=== PATIENT | male | born 1970 | race Caucasian/White ===

== ENCOUNTER → 2017-11-29 | Outpatient (CLI) | payer OTHER ==
[~2017-11-29] MED LIST: AMLO10 PO; ATOR80 PO; Aspir 8181 MG PO; CLOP75 PO; LISI20 PO
[2017-11-29 15:10] LABS: Adenovirus F 40/41 Not Detected (NOT DETECT); Astrovirus Not Detected (NOT DETECT); Campylobacter Sp Not Detected (NOT DETECT); Cryptosporidium Not Detected (NOT DETECT); Cyclospora Cayetanensis Not Detected (NOT DETECT); E. Coli O157 Not Detected (NOT DETECT); Entamoeba Histolytica Not Detected (NOT DETECT); Enteroaggregative E. coli-EAEC Not Detected (NOT DETECT); Enteropathogenic E. coli-EPEC Not Detected (NOT DETECT); Enterotoxigenic E. coli-ETEC Not Detected (NOT DETECT); Giardia Lamblia Not Detected (NOT DETECT); Norovirus GI/GII Not Detected (NOT DETECT); Plesiomonas Shigelloides Not Detected (NOT DETECT); Rotavirus A Not Detected (NOT DETECT); Salmonella Sp Not Detected (NOT DETECT); Sapovirus Not Detected (NOT DETECT); Shiga Toxin-prod E. coli-STEC Not Detected (NOT DETECT); Shigella/Enteroin E. coli-EIEC Not Detected (NOT DETECT); Vibrio Cholerae Not Detected (NOT DETECT); Vibrio Sp Not Detected (NOT DETECT); Yersinia Enterocolitica Not Detected (NOT DETECT)
== END | disposition home or self-care (01) ==
LOC: LAB EV 11:00 → LAB FUT 11-09 14:20
PROVIDERS: Student in an Organized Health Care Education/Training Program
DX: K62.5 Hemorrhage of anus and rectum (principal); R19.7 Diarrhea, unspecified
CPT/HCPCS: 87507

== ENCOUNTER 2017-12-07 11:50 | Day surgery (SDC) | payer OTHER ==
[~2017-12-07] VITALS: Ht 165.1 cm; Wt 99.8 kg
== END 2017-12-07 15:10 | disposition home or self-care (01) ==
LOC: ORSCSDS 11:50
PROVIDERS: Student in an Organized Health Care Education/Training Program
PROC: 0DBL8ZX Excision of Transverse Colon, Via Natural or Artificial Opening Endoscopic, Diagnostic (ICD-10-PCS; principal; 2017-12-07 13:15)
PROC: 0DBN8ZX Excision of Sigmoid Colon, Via Natural or Artificial Opening Endoscopic, Diagnostic (ICD-10-PCS; principal; 2017-12-07 13:15)
DX: K62.5 Hemorrhage of anus and rectum (principal); K63.5 Polyp of colon; D12.3 Benign neoplasm of transverse colon; K57.30 Diverticulosis of large intestine without perforation or abscess without bleeding; K64.8 Other hemorrhoids; K64.4 Residual hemorrhoidal skin tags; I10 Essential (primary) hypertension; Z80.0 Family history of malignant neoplasm of digestive organs; R19.7 Diarrhea, unspecified; J44.9 Chronic obstructive pulmonary disease, unspecified; Z87.891 Personal history of nicotine dependence; Z79.82 Long term (current) use of aspirin; Z79.84 Long term (current) use of oral hypoglycemic drugs; Z79.899 Other long term (current) drug therapy
CPT/HCPCS: J7120

== ENCOUNTER 2019-01-19 21:19 | Emergency (ER) | payer OTHER ==
[~2019-01-19] VITALS: Ht 165.1 cm; Wt 113.4 kg
[~2019-01-19 21:19] MED LIST changes: -CLOP75 PO; +Synthroid137 MCG PO
[2019-01-19 22:00] LABS: BASOPHILS ABSOLUTE AUTO 0.03 K/mm3 (0.00-0.23); BASOPHILS PERCENT AUTO 0 % (0-2); EOSINOPHILS ABSOLUTE AUTO 0.07 K/mm3 (0.00-0.68); EOSINOPHILS PERCENT AUTO 1 % (0-6); Hematocrit 45.3 % (37.0-53.0); IMMATURE GRAN ABSOLUTE AUTO 0.03 K/mm3 (0.00-0.10); IMMATURE GRAN PERCENT AUTO 0 % (0-1); LYMPHOCYTES ABSOLUTE AUTO 1.37 K/mm3 (0.84-5.20); LYMPHOCYTES PERCENT AUTO 14 % (21-46); MONOCYTES ABSOLUTE AUTO 1.01 K/mm3 (0.16-1.47); MONOCYTES PERCENT AUTO 10 % (4-13); Mean Corpuscular HGB Conc 33.1 g/dL (31.5-36.5); Mean Corpuscular Volume 91 fL (80-100); Mean Platelet Volume 9.6 fL (9.1-12.4); NEUTROPHILS ABSOLUTE AUTO 7.22 K/mm3 (1.96-9.15); NEUTROPHILS PERCENT AUTO 74 % (41-73); Platelet Count 342 K/mm3 (150-400); RDW Coefficient Variation 12.3 % (11.7-14.2); RDW Standard Deviation 40.8 fL (35.1-46.3); White Blood Cell Count 9.73 K/mm3 (4.00-11.30)
[2019-01-19 22:20] LABS: Alanine Aminotransfer (ALT/SGP 36 U/L (12-78); Albumin, Blood 3.7 g/dL (3.4-5.0); Albumin/Globulin Ratio 0.9 (0.8-1.8); Alk Phos 102 U/L (50-136); Anion Gap 9 mmol/L (6-16); Aspartate Aminotrans (AST/SGOT 31 U/L (12-37); Bilirubin, Total 0.5 mg/dL (0.1-1.0); Blood Urea Nitrogen 12 mg/dL (8-24); Bun/Creatinine Ratio 16.9 (12.0-20.0); CO2, Blood 26 mmol/L (21-32); Calcium, Blood 8.8 mg/dL (8.5-10.1); Chloride, Blood 102 mmol/L (98-108); Creatinine, Blood 0.71 mg/dL (0.60-1.20); Globulin, Blood 4.3 g/dL (2.2-4.0); Glomerular Filtration Rate >60 (60-); Glucose, Blood 115 mg/dL (70-99); Potassium, Blood 3.8 mmol/L (3.5-5.5); Sodium, Blood 137 mmol/L (136-145)
[2019-01-20] MEDS ORDERED: Roxicodone5 MG PO (01:43)
[2019-01-20] MEDS ORDERED: ONDA4ODT MM (01:43)
[2019-01-21] MEDS ORDERED: CLOP75 PO (19:17)
== END 2019-01-20 02:27 | disposition home or self-care (01) ==
LOC: ER 21:19
PROVIDERS: Emergency Medicine
DX: K80.70 Calculus of gallbladder and bile duct without cholecystitis without obstruction (principal); Z88.0 Allergy status to penicillin; Z79.82 Long term (current) use of aspirin; Z79.899 Other long term (current) drug therapy; I10 Essential (primary) hypertension; Z86.73 Personal history of transient ischemic attack (TIA), and cerebral infarction without residual deficits; E03.9 Hypothyroidism, unspecified; Z87.891 Personal history of nicotine dependence
CPT/HCPCS: 36415; 76705; 80053; 83690; 85025; 96361; 96374; 96375; 99284-25; A9270; A9270-GY; J1170; J2405; J7120

== ENCOUNTER 2019-01-21 16:21 | Observation (INO) | payer OTHER ==
[~2019-01-21] VITALS: Ht 165.1 cm; Wt 113.4 kg
[~2019-01-21 16:21] MED LIST changes: +ONDA4ODT MM; +Roxicodone5 MG PO
[2019-01-21 17:58] LABS: BASOPHILS ABSOLUTE AUTO 0.02 K/mm3 (0.00-0.23); BASOPHILS PERCENT AUTO 0 % (0-2); EOSINOPHILS ABSOLUTE AUTO 0.02 K/mm3 (0.00-0.68); EOSINOPHILS PERCENT AUTO 0 % (0-6); Hematocrit 44.9 % (37.0-53.0); IMMATURE GRAN ABSOLUTE AUTO 0.04 K/mm3 (0.00-0.10); IMMATURE GRAN PERCENT AUTO 0 % (0-1); LYMPHOCYTES ABSOLUTE AUTO 0.78 K/mm3 (0.84-5.20); LYMPHOCYTES PERCENT AUTO 9 % (21-46); MONOCYTES ABSOLUTE AUTO 0.59 K/mm3 (0.16-1.47); MONOCYTES PERCENT AUTO 7 % (4-13); Mean Corpuscular HGB 29.4 pg (26.0-34.0); Mean Corpuscular HGB Conc 33.4 g/dL (31.5-36.5); Mean Platelet Volume 9.6 fL (9.1-12.4); NEUTROPHILS ABSOLUTE AUTO 7.69 K/mm3 (1.96-9.15); NEUTROPHILS PERCENT AUTO 84 % (41-73); Platelet Count 351 K/mm3 (150-400); RDW Coefficient Variation 12.1 % (11.7-14.2); RDW Standard Deviation 39.4 fL (35.1-46.3); White Blood Cell Count 9.14 K/mm3 (4.00-11.30)
[2019-01-21 17:59] LABS: Mean Corpuscular Volume 88 fL (80-100)
[2019-01-21 18:15] LABS: Alanine Aminotransfer (ALT/SGP 664 U/L (12-78); Albumin, Blood 3.9 g/dL (3.4-5.0); Alk Phos 372 U/L (50-136); Anion Gap 8 mmol/L (6-16); Aspartate Aminotrans (AST/SGOT 516 U/L (12-37); Bilirubin, Total 3.6 mg/dL (0.1-1.0); Blood Urea Nitrogen 7 mg/dL (8-24); Bun/Creatinine Ratio 10.8 (12.0-20.0); CO2, Blood 25 mmol/L (21-32); Calcium, Blood 9.4 mg/dL (8.5-10.1); Chloride, Blood 99 mmol/L (98-108); Creatinine, Blood 0.65 mg/dL (0.60-1.20); Globulin, Blood 4.1 g/dL (2.2-4.0); Glomerular Filtration Rate >60 (60-); Glucose, Blood 162 mg/dL (70-99); Potassium, Blood 3.1 mmol/L (3.5-5.5); Sodium, Blood 132 mmol/L (136-145)
[2019-01-21] MEDS ORDERED: CLOP75 PO (19:17)
[2019-01-21 19:56] LABS: Source, Urine Clean Catch
[2019-01-21 20:00] LABS: Blood, Urine Neg (Neg); Glucose Qualitative, Urine Neg (Neg); Ketones, Urine 3+ (Neg); Leukocyte Esterase, Urine 1+ (Neg); Nitrite, Urine Neg (Neg); Protein, Urine 2+ (Neg); Specific Gravity, Urine 1.015 (1.003-1.022); Urobilinogen, Urine 4+ (Normal); pH, Urine 6.5 (5.0-8.0)
[2019-01-21 20:09] LABS: Bilirubin, Urine 3+ (Neg)
[2019-01-21 20:10] LABS: Appearance, Urine Clear (Clear); Color, Urine Orange (P-Yellow)
[2019-01-21 20:11] LABS: Bacteria Mod /hpf; Mucus Mod (0-Heavy); Red Blood Cells, Urine 0-2 /hpf (0-2); Squamous Epithelial Cells Few /hpf (Few)
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
[2019-01-22 06:20] LABS: Alanine Aminotransfer (ALT/SGP 509 U/L (12-78); Albumin, Blood 3.2 g/dL (3.4-5.0); Albumin/Globulin Ratio 0.8 (0.8-1.8); Alk Phos 354 U/L (50-136); Anion Gap 5 mmol/L (6-16); Aspartate Aminotrans (AST/SGOT 311 U/L (12-37); Bilirubin, Total 4.1 mg/dL (0.1-1.0); Blood Urea Nitrogen 8 mg/dL (8-24); Bun/Creatinine Ratio 9.5 (12.0-20.0); CO2, Blood 30 mmol/L (21-32); Calcium, Blood 8.9 mg/dL (8.5-10.1); Chloride, Blood 101 mmol/L (98-108); Creatinine, Blood 0.84 mg/dL (0.60-1.20); Globulin, Blood 3.9 g/dL (2.2-4.0); Glomerular Filtration Rate >60 (60-); Glucose, Blood 108 mg/dL (70-99); Sodium, Blood 136 mmol/L (136-145); Total Protein, Blood 7.1 g/dL (6.4-8.2)
--- NOTE | 2019-01-22 17:17 | NUR ---
SUMMARY PT HAS A ROOM AT [facility], PLAN FOR COBRA TRANSFER IVETTE, PT AWARE, REPORTS PAIN IS TOLERABLE WITH 0.5MG IV DILAUDID, PT MEDICATED X2 FOR PAIN TODAY, AMBULATES IN ROOM WITHOUT DIFFICULTY, DENIED ANY NAUSEA T/O SHIFT, CURRENTLY HAVING FULL LIQUIDS AND TOLERATING WELL, FLAGYL CURRENTLY INFUSING, PT WOULD LIKE TO TAKE A SHOWER AFTER IV ABX FINISHED AND BEFORE TRANSPORT, ATTEMPTED TO CALL JOVANI BROOKS AT [facility] TO CALL FOR REPORT BUT WAS UNAVAILABLE AT THIS TIME.
== END 2019-01-22 18:52 | disposition short-term general hospital (02) ==
LOC: ER 16:21 → SURS 16:22
PROVIDERS: Physician Assistant; ADMIT Surgery
DX: K80.42 Calculus of bile duct with acute cholecystitis without obstruction (principal); I10 Essential (primary) hypertension; G47.30 Sleep apnea, unspecified; E03.9 Hypothyroidism, unspecified; Z86.73 Personal history of transient ischemic attack (TIA), and cerebral infarction without residual deficits; Z99.89 Dependence on other enabling machines and devices; Z87.891 Personal history of nicotine dependence; Z79.899 Other long term (current) drug therapy; Z79.82 Long term (current) use of aspirin
CPT/HCPCS: 36415; 74181; 76705; 80053; 81001; 83690; 85025; 87086; 90686; 93005; 93010; 96365; 96366; 96367; 96375; 96376; 99285-25; G0008; G0378; J1170; J1885; J1956; J2550; J7120

== ENCOUNTER 2019-02-02 15:06 | Inpatient (IN) | payer OTHER ==
[~2019-02-02] VITALS: Ht 165.1 cm; Wt 115.3 kg
[~2019-02-02 15:06] MED LIST changes: +CLOP75 PO
[2019-02-02 15:30] LABS: Calcium, Ionized (POC) 1.14 mmol/L (1.10-1.46); Chloride (POC) 103 mmol/L (98-108); Creatinine (POC) 0.9 mg/dL (0.8-1.3); Glucose (ISTAT POC) 130 mg/dL (70-99); Hemoglobin (POC) 10.5 g/dL (13.5-17.5); Potassium (POC) 4.3 mmol/L (3.5-5.5); Sodium (POC) 134 mmol/L (135-148); Total CO2 (POC) 21 mmol/L (21-32)
[2019-02-02 15:35] LABS: BASOPHILS ABSOLUTE AUTO 0.08 K/mm3 (0.00-0.23); BASOPHILS PERCENT AUTO 1 % (0-2); EOSINOPHILS ABSOLUTE AUTO 0.04 K/mm3 (0.00-0.68); EOSINOPHILS PERCENT AUTO 0 % (0-6); Hematocrit 32.6 % (37.0-53.0); Hemoglobin 10.4 g/dL (13.5-17.5); IMMATURE GRAN ABSOLUTE AUTO 0.19 K/mm3 (0.00-0.10); IMMATURE GRAN PERCENT AUTO 1 % (0-1); LYMPHOCYTES ABSOLUTE AUTO 2.33 K/mm3 (0.84-5.20); LYMPHOCYTES PERCENT AUTO 16 % (21-46); MONOCYTES ABSOLUTE AUTO 1.16 K/mm3 (0.16-1.47); MONOCYTES PERCENT AUTO 8 % (4-13); Mean Corpuscular HGB 29.9 pg (26.0-34.0); Mean Corpuscular HGB Conc 31.9 g/dL (31.5-36.5); NEUTROPHILS ABSOLUTE AUTO 10.74 K/mm3 (1.96-9.15); NEUTROPHILS PERCENT AUTO 74 % (41-73); Platelet Count 534 K/mm3 (150-400); RDW Coefficient Variation 12.4 % (11.7-14.2); Red Blood Cell Count 3.48 M/mm3 (4.30-5.90); White Blood Cell Count 14.54 K/mm3 (4.00-11.30)
[2019-02-02 15:39] LABS: Mean Corpuscular Volume 94 fL (80-100)
[2019-02-02 15:50] LABS: International Normalized Ratio 0.96; Prothrombin Time Results 10.2 Sec (9.7-11.5)
[2019-02-02 15:58] LABS: Alanine Aminotransfer (ALT/SGP 63 U/L (12-78); Albumin, Blood 3.3 g/dL (3.4-5.0); Albumin/Globulin Ratio 0.9 (0.8-1.8); Alk Phos 118 U/L (50-136); Anion Gap 9 mmol/L (6-16); Aspartate Aminotrans (AST/SGOT 18 U/L (12-37); Bilirubin, Total 0.5 mg/dL (0.1-1.0); Blood Urea Nitrogen 39 mg/dL (8-24); Bun/Creatinine Ratio 44.4 (12.0-20.0); CO2, Blood 20 mmol/L (21-32); Calcium, Blood 8.6 mg/dL (8.5-10.1); Chloride, Blood 105 mmol/L (98-108); Creatinine, Blood 0.88 mg/dL (0.60-1.20); Globulin, Blood 3.8 g/dL (2.2-4.0); Glomerular Filtration Rate >60 (60-); Glucose, Blood 126 mg/dL (70-99); Potassium, Blood 4.2 mmol/L (3.5-5.5); Sodium, Blood 134 mmol/L (136-145); Total Protein, Blood 7.1 g/dL (6.4-8.2)
--- NOTE | 2019-02-02 19:06 | NUR ---
PT ADMITTED TO ROOM [id number] VIA GURNEY FROM ED APPROX 1745. FAMILY AT BEDSIDE. PT ABLE TO ANSWER ALL QUESTIONS APPROPRIATELY. DENIES FEELING PAIN OR NAUSEA. NO EPISODES SINCE ARRIVAL OF BLANK STARES WITH NO VERBAL RESPONSE. SPOKE WITH DR. CORTES. NEW ORDERS. GIVEN CLEAR LIQUID DINNER. NO STOOL SINCE ARRIVAL TO FLOOR
[2019-02-02 21:25] LABS: Hematocrit 26.5 % (37.0-53.0); Hemoglobin 8.6 g/dL (13.5-17.5)
[2019-02-03 03:31] LABS: BASOPHILS ABSOLUTE AUTO 0.04 K/mm3 (0.00-0.23); BASOPHILS PERCENT AUTO 0 % (0-2); EOSINOPHILS ABSOLUTE AUTO 0.06 K/mm3 (0.00-0.68); EOSINOPHILS PERCENT AUTO 1 % (0-6); Hematocrit 22.4 % (37.0-53.0); Hematocrit 22.6 % (37.0-53.0); Hemoglobin 7.1 g/dL (13.5-17.5); Hemoglobin 7.2 g/dL (13.5-17.5); IMMATURE GRAN ABSOLUTE AUTO 0.14 K/mm3 (0.00-0.10); IMMATURE GRAN PERCENT AUTO 1 % (0-1); LYMPHOCYTES PERCENT AUTO 23 % (21-46); MONOCYTES ABSOLUTE AUTO 1.01 K/mm3 (0.16-1.47); MONOCYTES PERCENT AUTO 8 % (4-13); Mean Corpuscular HGB 29.1 pg (26.0-34.0); Mean Corpuscular HGB Conc 31.9 g/dL (31.5-36.5); Mean Corpuscular Volume 92 fL (80-100); Mean Platelet Volume 9.7 fL (9.1-12.4); NEUTROPHILS ABSOLUTE AUTO 8.28 K/mm3 (1.96-9.15); NEUTROPHILS PERCENT AUTO 67 % (41-73); Platelet Count 420 K/mm3 (150-400); RDW Coefficient Variation 12.6 % (11.7-14.2); RDW Standard Deviation 41.9 fL (35.1-46.3); Red Blood Cell Count 2.47 M/mm3 (4.30-5.90); White Blood Cell Count 12.33 K/mm3 (4.00-11.30)
[2019-02-03 03:55] LABS: Alanine Aminotransfer (ALT/SGP 57 U/L (12-78); Albumin, Blood 2.6 g/dL (3.4-5.0); Albumin/Globulin Ratio 0.8 (0.8-1.8); Alk Phos 87 U/L (50-136); Anion Gap 6 mmol/L (6-16); Aspartate Aminotrans (AST/SGOT 30 U/L (12-37); Bilirubin, Total 0.4 mg/dL (0.1-1.0); Blood Urea Nitrogen 31 mg/dL (8-24); Bun/Creatinine Ratio 39.9 (12.0-20.0); CO2, Blood 22 mmol/L (21-32); Calcium, Blood 7.9 mg/dL (8.5-10.1); Chloride, Blood 110 mmol/L (98-108); Creatinine, Blood 0.78 mg/dL (0.60-1.20); Globulin, Blood 3.1 g/dL (2.2-4.0); Glomerular Filtration Rate >60 (60-); Glucose, Blood 127 mg/dL (70-99); Potassium, Blood 4.2 mmol/L (3.5-5.5); Sodium, Blood 138 mmol/L (136-145); Total Protein, Blood 5.7 g/dL (6.4-8.2)
--- NOTE | 2019-02-03 04:11 | NUR ---
HGB CONTINUES TO TREND DOWN AND IS <8 THIS MORNING AT 7.1. SPOKE WITH DR LEZAMA REGARDING H&H. NEW ORDER FOR 2 UNITS RBC'S. PLAN FOR SCHED EGD LATER THIS MORNING.
--- NOTE | 2019-02-03 04:47 | NUR ---
FIRST BAG OF RBC'S NOW TRANSFUSING.
--- NOTE | 2019-02-03 04:48 | NUR ---
SHIFT SUMMARY: PT A&O X4 T/O SHIFT. PT OCC TACHY WITH LOW BP. PT HAVING LIQ DARK BROWN-BLACK STOOLS OVER NIGHT. USING BEDPAN TO PREVENT FALLS. PT DENIES DIZZINESS WHILE LAYING IN BED. PROTONIX INFUSING MOST OF SHIFT. H&H'S TRENDING DOWN T/O SHIFT. PT LETHARGIC THIS MORNING WITH HGB OF 7.1. FIRST PACK OF RBC'S INFUSING. PLAN FOR UPPER ENDOSCOPY LATER THIS MORNING. PT HAS BEEN NPO SINCE MIDNIGHT. DENIES N/V. FAMILY AT BEDSIDE.
--- NOTE | 2019-02-03 13:26 | NUR ---
ASSUMED CARE APPROXIMATELY @0700; PT IS ALERT; STATES HE IS TIRED; PRBC RECIEVED THIS AM; PT USES BEDPAN; STATES HE FEELS DIZZY AT TIMES; PT'S MOTHER IS AT BEDSIDE; PT TO DAY SURG FOR EGD AT 1330; WILL CONTINUE TO MONITOR
[2019-02-03 13:34] LABS: Hematocrit 25.5 % (37.0-53.0); Hemoglobin 8.5 g/dL (13.5-17.5)
--- NOTE | 2019-02-03 14:31 | NUR ---
02/03/19 1431 Evaristo Carter PATIENT DETERMINED TO BE APPROPRIATE FOR MAC SEDATION. 3-LEAD EKG REVIEWED WITH PHYSICIAN PRIOR TO START OF PROCEDURE.PATIENT CONFIRMS NPO STATUS AND AGREES WITH SCHEDULED PROCEDURE.History, Chart, Medications and Allergies reviewed before start of procedure.MONITOR INTACT WITH CONTINUOUS PULSE OXIMETRY AND INTERMITTENT BP.O2 VIA N/C INTACT THROUGHOUT SEDATION/PROCEDURE.Bite Block Placed
--- NOTE | 2019-02-03 19:39 | NUR ---
UPDATE PT RECEIVING RBC; PROTONIX GTT; PT A&O X4; CURRENTLY ICE CHIP ONLY; WILL BE MONITORED FOR UPGRADE TO CLEAR LIQUIDS IN THE AM; CALLS APPROPRIATELY; CALL LIGHT IN REACH; BED IN LOWEST POSITION; HAND OFF TO NOC RN COMPLETE.
[2019-02-04 01:17] LABS: Hematocrit 28.3 % (37.0-53.0); Hemoglobin 9.6 g/dL (13.5-17.5)
[2019-02-04 01:32] LABS: Anion Gap 4 mmol/L (6-16); Blood Urea Nitrogen 18 mg/dL (8-24); Bun/Creatinine Ratio 23.8 (12.0-20.0); CO2, Blood 26 mmol/L (21-32); Calcium, Blood 7.8 mg/dL (8.5-10.1); Chloride, Blood 109 mmol/L (98-108); Creatinine, Blood 0.76 mg/dL (0.60-1.20); Glomerular Filtration Rate >60 (60-); Glucose, Blood 114 mg/dL (70-99); Sodium, Blood 139 mmol/L (136-145)
--- NOTE | 2019-02-04 06:20 | NUR ---
mother at bed side, call light in reach, using urinal, protonix drip running with ns, one unit of blood was given along with one from the previous shift, h/h still low but higher than it has been, no major medical changes noted during shift, will continue to monitor and treat as appropriate until bsr provided to pt and day shift
[2019-02-04 07:30] LABS: Hematocrit 26.9 % (37.0-53.0); Hemoglobin 9.1 g/dL (13.5-17.5)
--- NOTE | 2019-02-04 08:47 | NUR ---
ASSUMED CARE APPROXIMATELY 0700; PT RESTING IN BED W/ PERSONAL CPAP IN PLACE; MOTHER AT BEDSIDE; PT PLEASANT AND COMPLIANT W/ CARE; VSS; HGB 9.1 @ 0700; PT ON CLEAR LIQUIDS; PROTONIX GTT 10 MLS/HR; CALL LIGHT IN REACH; BED IN LOWEST POSITION
[2019-02-04 13:24] LABS: Hematocrit 28.5 % (37.0-53.0); Hemoglobin 9.7 g/dL (13.5-17.5)
--- NOTE | 2019-02-04 18:39 | NUR ---
UPDATE PT UP TO BSC SEVERAL TIMES TODAY; DARK LOOSE STOOLS; UPDATED TO FULL LIQUIDS LATE TODAY; PHYSICIAN TO BEDSIDE TO CONSULT PT AND FAMILY; PROTONIX GTT RUNNING; WILL CONTINUE TO MONITOR.
[2019-02-04 19:01] LABS: Hematocrit 28.1 % (37.0-53.0); Hemoglobin 9.6 g/dL (13.5-17.5)
[2019-02-05 03:14] LABS: Hematocrit 26.8 % (37.0-53.0); Hemoglobin 8.9 g/dL (13.5-17.5)
--- NOTE | 2019-02-05 06:54 | NUR ---
A+O, STILL SEEPING AT FEM SITE, PRESSURE HELD BY HAND FOR > 20 MIN multiple times during shift, currently states pain is minimal just wants to be able to move and adjust self in bed and urinate without a cath, staff worked for over 4 hours one on one with pt alaying fears, providing medication, and treatments and adjustments, will continue to assess and treat until share bsr with staff and pt
--- NOTE | 2019-02-05 08:56 | NUR ---
pt laying in bed awake a/ox3, pleasant and cooperative with care, follows commands well, denies pain, or other complaints, states he slept pretty well last night, lungs clear t/o, resp even and unlabored, no cough noted, hrr, tele in place running sr per monitor, see strip, no edema noted, ppp+2, cap refill <3sec, vs stable, afebrile, iv site is clear and patent, btx, voids without diff, skin c/w/d, maew, idalia, call light in reach.
--- NOTE | 2019-02-05 12:23 | NUR ---
pt mom expressed some concerns about restarting blood thinner, and when it should be restarted, and how are they going to know if he is bleeding again, paged GI but no call back yet. Dr. Gonzalez was in to see him, changed him to medical status and d/c tele. call light in reach.
--- NOTE | 2019-02-05 18:28 | NUR ---
pt doing well today, GI stopped in to see him and answered questions. no complaints or acute changes this shift. call light in reach.
--- NOTE | 2019-02-05 19:06 | NUR ---
PT AOX4 AND COOPERATIVE AND PLEASANT WITH CARE. PT ORIENTED TO ROOM AND CALL LIGHT WITHIN REACH. NO DISTRESS NOTED.
--- NOTE | 2019-02-06 04:40 | NUR ---
SHIFT SUMMARY- NO ACUTE CHANGES OVERNIGHT. PT. A&O, INDEP IN ROOM, PLEASANT AND COOPERATIVE WITH CARE. PT. ON PROTONIX DRIP, DENIED ANY BLOODY STOOLS, PAIN, OR DISCOMFORT T/O THE SHIFT. LAST H/H 8.9, PENDING AM RESULTS. CURRENTLY ON SOFT DIET, TOLERATING WELL. CALL LIGHT WITHIN REACH AND SIDE RAILS UP X2. WILL CONT TO MONITOR.
[2019-02-06 05:11] LABS: BASOPHILS ABSOLUTE AUTO 0.04 K/mm3 (0.00-0.23); BASOPHILS PERCENT AUTO 0 % (0-2); EOSINOPHILS ABSOLUTE AUTO 0.17 K/mm3 (0.00-0.68); EOSINOPHILS PERCENT AUTO 2 % (0-6); Hematocrit 26.2 % (37.0-53.0); Hemoglobin 8.6 g/dL (13.5-17.5); IMMATURE GRAN ABSOLUTE AUTO 0.12 K/mm3 (0.00-0.10); IMMATURE GRAN PERCENT AUTO 1 % (0-1); LYMPHOCYTES ABSOLUTE AUTO 2.95 K/mm3 (0.84-5.20); LYMPHOCYTES PERCENT AUTO 28 % (21-46); MONOCYTES ABSOLUTE AUTO 0.78 K/mm3 (0.16-1.47); MONOCYTES PERCENT AUTO 7 % (4-13); Mean Corpuscular HGB Conc 32.8 g/dL (31.5-36.5); Mean Corpuscular Volume 91 fL (80-100); Mean Platelet Volume 9.9 fL (9.1-12.4); NEUTROPHILS ABSOLUTE AUTO 6.63 K/mm3 (1.96-9.15); NEUTROPHILS PERCENT AUTO 62 % (41-73); NRBC ABSOLUTE 0.03 K/mm3 (0.00-0.02); NRBC Auto 0.3 /100 WBC (0.0-0.2); Platelet Count 390 K/mm3 (150-400); RDW Coefficient Variation 13.5 % (11.7-14.2); RDW Standard Deviation 44.2 fL (35.1-46.3); Red Blood Cell Count 2.87 M/mm3 (4.30-5.90); White Blood Cell Count 10.69 K/mm3 (4.00-11.30)
--- NOTE | 2019-02-06 18:03 | NUR ---
SHIFT SUMMARY OX4. INDEPENDENT IN ROOM. RECENT ERCP. H&H IMPROVING. DENIES ANY PAIN. AT BEDSIDE AND ATTENTIVE. POSSIBLE DC TOMORROW IF H&H STABLE. FOLLOW UP PLANNED WITH [facility] IN [place].
[2019-02-07 04:45] LABS: BASOPHILS ABSOLUTE AUTO 0.05 K/mm3 (0.00-0.23); BASOPHILS PERCENT AUTO 1 % (0-2); EOSINOPHILS ABSOLUTE AUTO 0.21 K/mm3 (0.00-0.68); EOSINOPHILS PERCENT AUTO 2 % (0-6); Hematocrit 28.5 % (37.0-53.0); Hemoglobin 9.2 g/dL (13.5-17.5); IMMATURE GRAN ABSOLUTE AUTO 0.12 K/mm3 (0.00-0.10); IMMATURE GRAN PERCENT AUTO 1 % (0-1); LYMPHOCYTES ABSOLUTE AUTO 3.05 K/mm3 (0.84-5.20); LYMPHOCYTES PERCENT AUTO 28 % (21-46); MONOCYTES PERCENT AUTO 7 % (4-13); Mean Corpuscular HGB 30.1 pg (26.0-34.0); Mean Corpuscular HGB Conc 32.3 g/dL (31.5-36.5); Mean Corpuscular Volume 93 fL (80-100); Mean Platelet Volume 9.3 fL (9.1-12.4); NEUTROPHILS ABSOLUTE AUTO 6.72 K/mm3 (1.96-9.15); NEUTROPHILS PERCENT AUTO 61 % (41-73); Platelet Count 474 K/mm3 (150-400); RDW Coefficient Variation 14.2 % (11.7-14.2); RDW Standard Deviation 46.1 fL (35.1-46.3); Red Blood Cell Count 3.06 M/mm3 (4.30-5.90); White Blood Cell Count 10.95 K/mm3 (4.00-11.30)
--- NOTE | 2019-02-07 05:06 | NUR ---
SLOT MANAGER SUMMARY NO ACUTE CHANGES THIS SHIFT. PT AAOX4 AND INDEPENDENT IN HIS ROOM. DENIES PAIN, SOB, N/V. PT DENIES ANY FURTHER BLOODY STOOLS THIS SHIFT. AWAITING MORNING LABS TO REVIEW H&H. PT TO POSSIBLY BE DC'D IF LABS STABLE. VSS, WILL CONTINUE TO MONITOR.
[2019-02-07] MEDS ORDERED: PANT40 PO (11:12)
--- NOTE | 2019-02-07 12:04 | NUR ---
PT DISCHARGED TO HOME. PT PROVIDED WITH DISCHARGE AND DISCHARGE MEDICATION EDUCATION. PT VERBALIZED UNDERSTANDING OF EDUCATION. PT INDEPENDENT IN ROOM PRIOR TO DISCHARGE. IV REMOVED PRIOR TO DISCHARGE. PT BELONGINGS WITH PT TO VEHICLE. PT TRANSPORTED HOME WITH MOTHER. PT TO VEHICLE VIA WHEELCHAIR. PT TRANSFERED INDEPENDENTLY TO VEHICLE.
== END 2019-02-07 11:54 | disposition home or self-care (01) | DRG 920 ==
LOC: ER 15:06 → PCU 16:17 → MEDS 02-05 18:30 → ENPENDDIS 02-07 11:27 → MEDS 02-07 11:54
PROVIDERS: Emergency Medicine; Internal Medicine; Student in an Organized Health Care Education/Training Program; ADMIT Internal Medicine
PROC: 0DJ08ZZ Inspection of Upper Intestinal Tract, Via Natural or Artificial Opening Endoscopic (ICD-10-PCS; 2019-02-03)
PROC: 30233N1 Transfusion of Nonautologous Red Blood Cells into Peripheral Vein, Percutaneous Approach (ICD-10-PCS; 2019-02-03)
PROC: 3E0G8GC Introduction of Other Therapeutic Substance into Upper GI, Via Natural or Artificial Opening Endoscopic (ICD-10-PCS; principal; 2019-02-03 11:30)
DX: K91.840 Postprocedural hemorrhage of a digestive system organ or structure following a digestive system procedure (principal); D62 Acute posthemorrhagic anemia; Z86.73 Personal history of transient ischemic attack (TIA), and cerebral infarction without residual deficits; I10 Essential (primary) hypertension; E03.9 Hypothyroidism, unspecified; Z87.891 Personal history of nicotine dependence; Z79.82 Long term (current) use of aspirin; G47.33 Obstructive sleep apnea (adult) (pediatric)
CPT/HCPCS: 36415; 36430; 80047; 80048; 80053; 82272; 85014; 85018; 85025; 85610; 85730; 86850; 86900; 86901; 86923; 93005; 93010; 94762; 96365; 96366; 99285-25; C9113; J0171; J2704; J7030; J7050; J7120; P9016

== ENCOUNTER 2022-12-14 11:54 | Day surgery (SDC) | payer OTHER ==
[~2022-12-14] VITALS: Ht 165.1 cm; Wt 98.9 kg
[~2022-12-14 11:54] MED LIST changes: +PANT40 PO
[2022-12-14] MEDS ORDERED: AMLODIPINE-OLM1 EAC4 (12:14)
[2022-12-14] MEDS ORDERED: ASPI81CH (12:14)
[2022-12-14] MEDS ORDERED: AMLO10 (12:15)
[2022-12-14] MEDS ORDERED: HYDCHL25 (12:15)
[2022-12-14] MEDS ORDERED: LISI20 (12:15)
[2022-12-14] MEDS ORDERED: CLOP75 (12:15)
[2022-12-14 13:37] VITALS: BP 142/74
--- NOTE | 2022-12-14 13:39 | NUR ---
12/14/22 1339 Sindy Bradley IV DC'D CATH INTACT. PT TOLERATED WELL. GAUZE/COBAN IN PLACE
== END 2022-12-14 13:38 | disposition home or self-care (01) ==
LOC: ORSCSDS 11:54
PROVIDERS: Internal Medicine Gastroenterology
PROC: 0DBL8ZX Excision of Transverse Colon, Via Natural or Artificial Opening Endoscopic, Diagnostic (ICD-10-PCS; principal; 2022-12-14 13:15)
PROC: 0DBM8ZX Excision of Descending Colon, Via Natural or Artificial Opening Endoscopic, Diagnostic (ICD-10-PCS; principal; 2022-12-14 13:15)
DX: Z12.11 Encounter for screening for malignant neoplasm of colon (principal); D12.3 Benign neoplasm of transverse colon; D12.4 Benign neoplasm of descending colon; K57.30 Diverticulosis of large intestine without perforation or abscess without bleeding; K64.8 Other hemorrhoids; Z86.010 Personal history of colon polyps; E66.01 Morbid (severe) obesity due to excess calories; Z68.41 Body mass index [BMI] 40.0-44.9, adult; E03.9 Hypothyroidism, unspecified; I10 Essential (primary) hypertension; E78.5 Hyperlipidemia, unspecified; G47.33 Obstructive sleep apnea (adult) (pediatric); Z86.73 Personal history of transient ischemic attack (TIA), and cerebral infarction without residual deficits; Z79.82 Long term (current) use of aspirin; Z79.02 Long term (current) use of antithrombotics/antiplatelets; Z79.899 Other long term (current) drug therapy; Z87.891 Personal history of nicotine dependence
CPT/HCPCS: 88305; J2704; J7120